=== PATIENT | female | born 1980 | race Caucasian/White ===

== ENCOUNTER 2017-01-09 12:23 | Emergency (ER) | payer BC ==
[2017-01-09] MEDS ORDERED: Acetaminophen 500 MG TAB ONE (14:36)
[2017-01-09] MEDS ORDERED: Ketorolac Tromethamine 30 MG/ML VIAL ONE (14:36)
[2017-01-09] MEDS ORDERED: Metoclopramide HCl 10 MG/2 ML VIAL ONE (14:36)
[2017-01-09] MEDS ORDERED: diphenhydrAMINE 50 MG/ML VIAL ONE (14:38)
== END 2017-01-09 16:12 | disposition home or self-care (01) ==
LOC: ERS 12:23
DX: G43.909 Migraine, unspecified, not intractable, without status migrainosus (principal); F41.9 Anxiety disorder, unspecified; F32.9 Major depressive disorder, single episode, unspecified; Z79.899 Other long term (current) drug therapy
CPT/HCPCS: 96361; 96374; 96375; J1200; J1885; J2765

== ENCOUNTER 2018-11-13 08:01 | Outpatient (CLI) | payer BC ==
--- NOTE | 2018-11-13 10:41 | ULT ---
RENAL ULTRASOUND: HISTORY: Urinary frequency. FINDINGS: Real-time imaging of the right and left kidneys was performed. The right kidney measures 12 and the left kidney 13.2 cm in size. No signs of cyst, mass, or obstruction. The bladder is incompletely di stended at the time of the study. There is a slightly prominent extrarenal pelvis on the left, altho ugh after voiding this reduced. IMPRESSION: Unremarkable renal ultrasound. POS: OFF
== END 2018-11-13 08:02 | disposition home or self-care (01) ==
LOC: BICULT 08:01
PROVIDERS: ATTEND Urology
DX: R39.198 Other difficulties with micturition (principal); R35.0 Frequency of micturition
CPT/HCPCS: 76770

== ENCOUNTER 2018-12-27 08:18 | Outpatient (CLI) | payer BC ==
--- NOTE | 2018-12-27 09:04 | MMO ---
Bilateral MAMMO Bilat Screen [facility]. CLINICAL HISTORY: Patient is 38 years old and is seen for screening. The patient has the following family history of breast cancer: maternal aunt. The patient has no personal history of cancer. VIEWS: The views performed were: bilateral craniocaudal with tomosynthesis; bilateral mediolateral oblique with tomosynthesis; and right exaggerated craniocaudal with tomosynthesis. This study has been interpreted with the assistance of computer-aided detection. MAMMOGRAM FINDINGS: The breasts are heterogeneously dense, which could obscure a lesion on mammography. There are benign appearing calcifications seen in the right breast. There are no suspicious masses, suspicious calcifications, or areas of architectural distortion. IMPRESSION: THERE IS NO MAMMOGRAPHIC EVIDENCE OF MALIGNANCY. A ROUTINE FOLLOW-UP MAMMOGRAM AT AGE 42 IS RECOMMENDED. THE RESULTS OF THIS EXAM WERE SENT TO THE PATIENT. ACR BI-RADS Category 2 - Benign finding MAMMOGRAPHY NOTE: 1. A negative mammogram report should not delay a biopsy if a dominant of clinically suspicious mass is present. 2. Approximately 10% to 15% of breast cancers are not detected by mammography. 3. Adenosis and dense breasts may obscure an underlying neoplasm. Reported by: ANGELA GONZALEZ MD Electonically Signed: [id number]
== END 2018-12-27 08:19 | disposition home or self-care (01) ==
LOC: BICMAMMO 08:18
PROVIDERS: ATTEND Family Medicine
DX: Z12.31 Encounter for screening mammogram for malignant neoplasm of breast (principal); Z80.3 Family history of malignant neoplasm of breast
CPT/HCPCS: 77063; 77067

== ENCOUNTER 2019-01-16 08:55 | Outpatient (CLI) | payer BC ==
[2019-01-16] MEDS ORDERED: ISOVUE-370 76%-LOCM 1 ML ONE (10:30)
--- NOTE | 2019-01-16 11:14 | RAD ---
VCUG: CLINICAL HISTORY: Slow urinary stream. FINDINGS: After the patient was catheterized by nursing staff, patient was escorted to the procedural suite. Pa tient was placed in a supine position. Retrograde, low pressure instillation of contrast into the urinary bladder was performed until adequate distention was acquired. No evidence of vesicoureteral r eflux. Normal female urethra is opacified during micturition. No evidence of bladder diverticulum. No post void residua. IMPRESSION: Normal [facility]. Transcribed Date/Time: 01/16/2019 12:14 PM
== END 2019-01-16 08:56 | disposition home or self-care (01) ==
LOC: RAD 08:55
PROVIDERS: ATTEND Urology
DX: R35.0 Frequency of micturition (principal); R39.198 Other difficulties with micturition
CPT/HCPCS: 51600; 74455; Q9966

== ENCOUNTER 2019-04-17 14:58 | Outpatient (CLI) | payer BC ==
[~2019-04-17 14:58] MED LIST: Iopamidol 370 76% 100 ML VIAL ONE
--- NOTE | 2019-04-17 16:00 | CT ---
CT NECK SOFT TISSUES WITH CONTRAST: 04/17/19 HISTORY: 38-year-old female with ICD-10: R07.0 pain in throat. Hoarseness. FINDINGS: Lung apices are grossly clear. Trachea is patent and clear. There is a small right anterior laryngoce le filled with air. Mild asymmetry of the hypopharynx, with air filled right piriform sinus larger t schofield left, nonspecific. No discrete solid laryngeal or hypopharyngeal mass identified. No cervical lymphadenopathy. The carotid, parotid, parapharyngeal, perivertebral, posterior cervical, retropharyngeal, pharyngeal mucosal, breastfeeding educator, submandibular, and sublingual, spaces, all appear n ormal. No destructive osseous lesion. Essentially normal cervical spine with no osteophytes protruding into the prevertebral space. No cervical spondylosis. No thyromegaly. Homogeneous attenuation of the thyr oid gland. Small calcified right mediastinal lymph nodes. No mass in AP window or thoracic inlet. Gre at vessels, including bilateral subclavian arteries, brachiocephalic artery, and bilateral common car otid arteries, are normal. IMPRESSION: 1. Mild asymmetry of the larynx. 2. Otherwise negative. POS: OFF
== END 2019-04-17 14:59 | disposition home or self-care (01) ==
LOC: BICCT 14:58
PROVIDERS: ATTEND Otolaryngology Otolaryngic Allergy
DX: R07.0 Pain in throat (principal); J38.7 Other diseases of larynx
CPT/HCPCS: 70491; Q9967

== ENCOUNTER 2020-06-24 06:59 | Outpatient (CLI) | payer BC | END 2020-06-24 07:00 | disposition home or self-care (01) | LOC: BICULT 06:59 | PROVIDERS: ATTEND Family Medicine | DX: R10.9 Unspecified abdominal pain (principal); R93.89 Abnormal findings on diagnostic imaging of other specified body structures; N83.8 Other noninflammatory disorders of ovary, fallopian tube and broad ligament | CPT/HCPCS: 76856 ==

== ENCOUNTER 2020-12-14 07:33 | Outpatient (CLI) | payer BC | END 2020-12-14 07:34 | disposition home or self-care (01) | LOC: BICMRI 07:33 | PROVIDERS: ATTEND Family Medicine | DX: R41.82 Altered mental status, unspecified (principal) | CPT/HCPCS: 70553 ==

== ENCOUNTER 2023-02-22 12:21 | Outpatient (CLI) | payer BC | END 2023-02-22 12:22 | disposition home or self-care (01) | LOC: SCSRAD 12:21 | PROVIDERS: ATTEND Family Medicine | DX: R05.9 Cough, unspecified (principal) | CPT/HCPCS: 71046 ==